=== PATIENT | female | born 1945 | race Caucasian/White ===

== ENCOUNTER → 2016-05-06 | Outpatient (CLI) | payer MEDICARE, BC ==
[~2016-05-06] MED LIST: ACET500T3 PO; ALBU0.63 NEB; AMIT50TA3 PO; ASCO500C PO; BISA1TAB PO; FLUO40CA PO; IPRAAER INH; LEVO50TA4 PO; LORA10TA PO; MECL-62 PO; MOME1AER3 INH; MONT10TA2 PO; MULT-120 PO; OLAN10TA PO; OLOD1AER2 INH; OMEP40CA2 PO; OXYB5TAB10 PO; PROC10TA PO; QUET400XR PO; SENN8.6C PO; [UNRECOGNIZED DRUG - OTHER] INH
[2016-05-06 10:55] LABS: HEMATOCRIT 41.4 % (35.0-46.0); MEAN CELL VOLUME 78.7 FL (80.0-100.0); MEAN CORPUSCULAR HEMOGLOBIN 25.5 PG (27.0-34.0); MEAN CORPUSCULAR HGB CONC 32.5 % (32.0-36.0); PLATELET COUNT 326 TH/MM3 (150-450); RED BLOOD COUNT 5.26 MIL/MM3 (4.00-5.30); RED CELL DISTRIBUTION WIDTH 15.1 % (11.6-17.2); REVIEW FLAG FINAL
[2016-05-06 10:57] LABS: APTT (PATIENT) 26.6 SEC (24.3-30.1); PROTHROMBIN TIME - PATIENT 10.5 SEC (9.8-11.6)
[2016-05-06 11:16] LABS: BICARBONATE 31.8 MEQ/L (21.0-32.0)
[2016-05-06 11:25] LABS: WESTERGREN SEDIMENTATION RATE 4 mm/hr (0-30)
--- NOTE | 2016-05-08 11:52 | EKG ---
Date Performed: 05/06/2016 Time Performed: 10:09:04 PTAGE: 71 years EKG: Sinus rhythm LOW QRS VOLTAGE IN PRECORDIAL LEADS BORDERLINE ECG NO PREVIOUS TRACING DOCTOR: Shanthi Harvey Interpretating Date/Time 05/08/2016 11:51:58
== END ==
LOC: CPRE 12:03
PROVIDERS: ATTEND Internal Medicine
DX: Z01.812 Encounter for preprocedural laboratory examination (principal); J47.9 Bronchiectasis, uncomplicated; J18.9 Pneumonia, unspecified organism
CPT/HCPCS: 36415; 80048; 82103; 85027; 85610; 85652; 85730; 86038; 86140; 93005

== ENCOUNTER → 2016-05-10 | Day surgery (SDC) | payer MEDICARE, BC ==
[~2016-05-10] VITALS: Ht 165.1 cm; Wt 95.4 kg
[~2016-05-10] MED LIST changes: +DO NOT ADM ANY ANTICOAGULANT DRUGS XX PRN; +EPINEPHrine HCL (1:1000) 1 MG/ML VIAL ONE; +LIDOCAINE HCL 2% PF SOLN 10 ML VIAL ONE; +LIDOCAINE VISCOUS 2% SOLN 15 ML UDC ONE; +PROPOFOL 200 MG/20 ML AMP IV ONE; +RESP: ALBUTEROL 2.5 MG/3 ML NEB (PRN) NEB; +RESP: ALBUTEROL 2.5 MG/3 ML NEB (SCH) INH; +RESP: LIDOCAINE HCL 4% PF 5 ML NEB NEB SCH; +SODIUM CHLOR 0.9% 1000 ML INJ 1,000 ML IV SCH; +SODIUM CHLORIDE 0.9% 20 ML VIAL ONE; +fentaNYL CITRATE 250 MCG/5 ML AMP ONE
[2016-05-10 13:30] VITALS: BP 118/65; PULSE 96; RESP 22; TEMP 97.7; O2SAT 95
[2016-05-10 17:01] VITALS: BP 125/70; PULSE 94; RESP 20; TEMP 98.4; O2SAT 98
--- NOTE | 2016-05-11 07:22 | MR ---
cc: Rosy HOLLINS M.D. DATE 05/10/2016 PROCEDURE Bronchoscopy. INDICATION Bilateral lower lobe infiltrates. After informed consent was obtained, the patient underwent diagnostic bronchoscopy with general anesthesia. Examination of the mid to distal trachea revealed scattered purulent secretions which were all aspirated. No other endobronchial pathology. Examination of the left main stem bronchus, left upper and lower lobes again revealed scattered purulent secretions, some obstructing subsegmental airways and the left upper and lower lobes were washed extensively and those specimens submitted for cultures and cytology. Examination of the right main stem bronchus, right upper, middle and lower lobes again revealed no endobronchial pathology, no obstruction but scattered purulent secretions throughout again causing some obstruction of subsegmental segments. SUMMARY There are scattered, thick purulent secretions in both lungs, some of them causing subsegmental obstruction, probably accounting for the CT findings. Specimens were submitted for culture and cytology. She tolerated the procedure well without apparent complication and is being prepared for transfer to recovery. MD CORTEZ Snell/STEVENSON /2:52 PM /7:13 AM
== END | disposition home or self-care (01) ==
LOC: HSDC 11:48
PROVIDERS: ATTEND Internal Medicine
DX: J18.9 Pneumonia, unspecified organism (principal); J47.9 Bronchiectasis, uncomplicated; B96.5 Pseudomonas (aeruginosa) (mallei) (pseudomallei) as the cause of diseases classified elsewhere
CPT/HCPCS: 00520; 31622; 87015; 87070; 87077; 87102; 87116; 87186; 87205; 87206; 88112; 88305; 94640; 94664; J0171; J3010; J7613; 88312

== ENCOUNTER → 2016-09-10 | Outpatient (CLI) | payer MEDICARE, BC ==
[~2016-09-10] MED LIST changes: -ASCO500C PO; -BISA1TAB PO; -DO NOT ADM ANY ANTICOAGULANT DRUGS XX PRN; -EPINEPHrine HCL (1:1000) 1 MG/ML VIAL ONE; -LIDOCAINE HCL 2% PF SOLN 10 ML VIAL ONE; -LIDOCAINE VISCOUS 2% SOLN 15 ML UDC ONE; -PROC10TA PO; -PROPOFOL 200 MG/20 ML AMP IV ONE; -RESP: ALBUTEROL 2.5 MG/3 ML NEB (PRN) NEB; -RESP: ALBUTEROL 2.5 MG/3 ML NEB (SCH) INH; -RESP: LIDOCAINE HCL 4% PF 5 ML NEB NEB SCH; -SODIUM CHLOR 0.9% 1000 ML INJ 1,000 ML IV SCH; -SODIUM CHLORIDE 0.9% 20 ML VIAL ONE; -fentaNYL CITRATE 250 MCG/5 ML AMP ONE
== END ==
LOC: HLAB 14:20
PROVIDERS: ATTEND Internal Medicine
DX: J47.9 Bronchiectasis, uncomplicated (principal); B96.20 Unspecified Escherichia coli [E. coli] as the cause of diseases classified elsewhere
CPT/HCPCS: 87015; 87070; 87077; 87116; 87186; 87205; 87206